=== PATIENT | male | born 1995 | race Caucasian/White ===

== ENCOUNTER 2020-01-20 16:11 | Outpatient (REF) | payer OTHER, SELFPAY | END 2020-01-20 16:12 | disposition home or self-care (01) | LOC: HO.LAB 16:11 | PROVIDERS: Visit Provider Internal Medicine | DX: Z20.828 Contact with and (suspected) exposure to other viral communicable diseases (principal) | CPT/HCPCS: C9803; U0003 ==

== ENCOUNTER 2021-02-11 11:29 | Outpatient (REF) | payer OTHER, SELFPAY ==
[2021-02-11 11:48] LABS: COVID-19 Test Negative (Negative); IDNOW Serial# 16C4AD1C
== END 2021-02-11 11:30 | disposition home or self-care (01) ==
LOC: HO.LAB 11:29
PROVIDERS: Visit Provider Internal Medicine
DX: Z20.822 Contact with and (suspected) exposure to COVID-19 (principal)
CPT/HCPCS: 36415; 87635; C9803

== ENCOUNTER 2025-01-09 16:00 | Emergency (ER) | payer OTHER, SELFPAY ==
--- NOTE | ~2025-01-09 | XR_ITS ---
CLINICAL HISTORY: low back pain 3 views lumbar spine Comparison: None Findings: No fractures or dislocations. Normal vertebral body alignment. No significant arthritic change. Sacroiliac joints unremarkable. Impression: 1. Unremarkable lumbar spine This document has been electronically signed by: Pradeep Ahumada MD on 01/09/2025 20:24:22
[2025-01-09 16:31] VITALS: BP 117/55; PULSE 48; RESP 16; TEMP 36.8; O2SAT 98; BMI 21.4
--- NOTE | 2025-01-09 16:35 | ECG_ITS ---
Test Reason : bradycardia Blood Pressure : */* mmHG Vent. Rate : 49 BPM Atrial Rate : 49 BPM P-R Int : 176 ms QRS Dur : 94 ms QT Int : 382 ms P-R-T Axes : 79 70 55 degrees QTcB Int : 345 ms Sinus bradycardia Otherwise normal ECG No previous ECGs available Referred By: Sam Davison Electronically Signed By: ARDEN NARAYANAN MD
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
[2025-01-09 21:21] VITALS: BP 117/55; PULSE 48; RESP 16; TEMP 36.8; O2SAT 98
== END 2025-01-09 21:21 | disposition home or self-care (01) ==
PROVIDERS: Emergency Provider Emergency Medicine
DX: S39.012A Strain of muscle, fascia and tendon of lower back, initial encounter (principal); R00.1 Bradycardia, unspecified; V43.52XA Car driver injured in collision with other type car in traffic accident, initial encounter; Y93.9 Activity, unspecified; Y92.410 Unspecified street and highway as the place of occurrence of the external cause; Y99.8 Other external cause status
CPT/HCPCS: 72100; 93005; 99283

== ENCOUNTER → 2025-01-09 16:32 | Outpatient (BNV) | payer OTHER, SELFPAY | PROVIDERS: Emergency Provider Emergency Medicine; Visit Provider Radiology Diagnostic Radiology | DX: M54.50 Low back pain, unspecified (principal) | CPT/HCPCS: 72100 ==

== ENCOUNTER → 2025-01-09 16:35 | Outpatient (BNV) | payer OTHER, SELFPAY | PROVIDERS: Emergency Provider Emergency Medicine; Visit Provider Internal Medicine Cardiovascular Disease | DX: R00.1 Bradycardia, unspecified (principal) | CPT/HCPCS: 93010 ==